=== PATIENT | male | born 1940 | race African-American/Black ===

== ENCOUNTER 2020-11-20 06:15 | Inpatient (IN) | payer MEDICARE, BC ==
[~2020-11-20] VITALS: Ht 152.4 cm; Wt 86.2 kg
--- NOTE | ~2020-11-20 | OP ---
[facility] [address] [place] [address] OPERATIVE REPORT Name: ROSALEE MCKEON JR Room: [address] IN ..#: [id number] Admission: 11/20/20 Attend Phys: Aubree Caceres Discharge: Date of : 44 Report #: [id number] THIS REPORT FOR: cc: Kirby Hall MD, William MD Haggard,Javier Zuniga MD ~ DOC #: [id number] Javier Barney MD DATE OF SURGERY: 11/20/2020 PREOPERATIVE DIAGNOSES: A 7 mm mid left ureteral stone, nonobstructing left renal stone, bladder calculi, benign prostatic hypertrophy with obstruction. POSTOPERATIVE DIAGNOSES: A 7 mm mid left ureteral stone, nonobstructing left renal stone, bladder calculi, benign prostatic hypertrophy with obstruction. PROCEDURES: Cystoscopy, left retrograde pyelogram, left ureteroscopy, left ureteral stent placement, cystolitholapaxy less than 2.5 cm in size. STAFF SURGEON: Javier Barney MD SEAMLESS HOSIERY KNITTER: None. ANESTHESIA: General. ESTIMATED BLOOD LOSS: 10 mL. COMPLICATIONS: None. SPECIMENS: Bladder stone fragments. DRAINS: A 26 cm x 6-Sudanese left ureteral stent and a 22-Sudanese 3-way Lennon catheter. INDICATIONS: The patient is a pleasant 80-year-old black male with history of kidney stones who denies significant voiding issues who presented with severe left flank pain. CT scan confirmed a 7 mm mid left ureteral stone and a nonobstructing left lower pole stone as well as several bladder calculi. He was counseled regarding treatment options, has elected for definitive cystoscopy, left retrograde pyelogram, left ureteroscopy, possible holmium laser lithotripsy, possible placement of left ureteral stent. After the risks and benefits of the procedure were explained, informed consent was obtained. OPERATIVE PROCEDURE: The patient was taken to the operating room, comfortably placed in the dorsal lithotomy position under adequate general anesthesia. He was sterilely prepped and draped [place] [address] OPERATIVE REPORT Name: ROSALEE MCKEON JR Room: [address] IN ..#: [id number] Admission: 11/20/20 Attend Phys: Aubree Caceres Discharge: Date of : 44 Report #: [id number] genitalia. He received his antibiotic therapy as prescribed with Ancef. Appropriate timeout was carried out and all were in agreement. A 22-Sudanese cystoscope was placed in mid urethra. Anterior urethra normal. Sphincter intact. Prostate showed marked trilobar prostatic hyperplasia with visual obstruction. Multiple bladder calculi were seen. See pictures for details. An 8-Sudanese cone-tipped catheter placed in the left ureteral orifice and a retrograde pyelogram was performed showing significant J-hooking of the distal left ureter, a pretty large filling defect in the proximal ureter. With dilation proximal to this corresponding stone seen on CT scan, I was able to manipulate an 0.035 Glidewire up the left ureter up to the level of the kidney. The cystoscope was removed and a 4.5 Sudanese tapered to 6.5 Sudanese Potter semi-rigid ureteroscope was advanced through the urethra up the left ureter, but really could only reach about the iliac level, which is only about two-thirds of the way to the level of the stone. The semirigid scope was then removed. Cystoscope was backloaded over the guidewire and a 26 cm x 6-Sudanese ureteral stent was put in place and had upper part of the stent in the upper pole compound, upper pole christian and a good coil in the bladder. Attention was then turned to the bladder calculi. 1000 micron holmium laser fiber was used to fragment the stones and multiple fragments irrigated out with a Cassidy syringe. Due to the median lobe, it was hard to get the stones out in the very dependent, so I had to use grasper, just to remove the fragments that would not irrigate out freely. Due to the multiple irrigations and the irritation of the lining from the indwelling stone, there was some mild hematuria that had developed, thought to be most prudent just to simply place the irrigations, so clots would not form. The cystoscope was then removed and a 22-Sudanese 3-way Lennon catheter put in place and secured with 30 mL of sterile water placed. Irrigation was clear with faint pink tinge. He tolerated the procedure extremely well. He was extubated in the operating room, transferred to [facility] with assistance and went to recovery room in stable condition. May remove this Lennon catheter in the morning. He will need stage 2 procedure for cystoscopy, left ureteroscopy, holmium laser lithotripsy of mid ureteral stone and might as well get the lower pole stone as well. He is free to follow up with his urologist, Dr. Sanchez. I will be more than happy to take over his care as well. Javier WELLS/RADHA By: 1113 1314Kent Nadia Barney MD /nt
[~2020-11-20 06:15] MED LIST: ADULT LOW DOSE81 MG PO; ASPIRIN325 PO; AVODART0.5 MG PO; CIPRO500 MG PO; CIPROFLOXACIN500 M1 PO; COLACE100 MG PO; CRESTOR10 MG PO; CRESTOR5 MG PO; FLAGYL500 MG PO; KEPPRA; LEVAQUIN 500 M500 MG PO; NOHOMEMEDICATIONS; NORCO 5-325 TA1 EACH PO; PERCOCET 5-3251 EACH PO; TAMSULOSIN HCL0.4 M1 PER TUBE; TAMSULOSIN HCL0.4 M1 PO; TAMSULOSIN HCL0.4 MG PO; ULTRAM 50MG TAB50 MG PO; VIAGRA50 MG
[2020-11-20 06:21] VITALS: BP 153/73
[2020-11-20 06:54] LABS: ABSOLUTE BASOPHILS 0.1 thou/uL (0.0-0.2); ABSOLUTE LYMPHOCYTES 1.6 thou/uL (0.8-5.3); ABSOLUTE NEUTROPHILS 8.9 thou/uL (1.6-8.1); BASOPHILS 0.6 %; EOSINOPHILS 0.3 %; HEMATOCRIT 45.3 % (42.0-52.0); HEMOGLOBIN 15.3 gm/dL (14.0-18.0); LYMPHOCYTES 13.5 %; MCHC 33.9 g/dL (28.0-37.0); MCV 88.6 fL (80.0-100.0); MONOCYTES 8.6 %; MPV 7.5 fl. (7.2-11.1); NUCLEATED RBCS 0 /100WBC; PLATELET COUNT* 265 thou/uL (150-400); RBC 5.11 mil/uL (4.50-6.00); RDW-CV 14.1 % (10.5-14.5); WBC 11.6 thou/uL (4.0-11.0)
[2020-11-20 07:04] LABS: CALCIUM 8.9 mg/dL (8.5-10.1); POTASSIUM 3.4 mmol/L (3.5-5.1)
[2020-11-20 07:08] LABS: ALBUMIN 3.8 g/dL (3.4-5.0); APTT 23.9 Seconds (25.0-31.3); INR 1.1; PROTIME 11.7 Seconds (9.20-11.50); TOTAL BILIRUBIN 1.1 mg/dL (<0.1-1.0); TOTAL PROTEIN 8.1 g/dL (6.4-8.2)
[2020-11-20 08:38] LABS: URINE BILIRUBIN NEGATIVE (Negative); URINE BLOOD 3+ (Negative); URINE CLARITY CLEAR; URINE COLOR YELLOW; URINE GLUCOSE-RANDOM NEGATIVE (Negative); URINE KETONES NEGATIVE (Negative); URINE LEUKOCYTES-REFLEX 1+ (Negative); URINE PROTEIN NEGATIVE (Negative); URINE UROBILINOGEN 0.2 E.U./dl (0.2-1.0)
[2020-11-20 08:48] LABS: SQUAMOUS 0-3 Few /LPF (0-3); URINE NITRITE-REFLEX POSITIVE (Negative); URINE WBC-REFLEX 6-15 Few /HPF (0-5)
[2020-11-20 08:49] LABS: CASTS None Seen /LPF (None Seen); CRYSTALS None Seen /LPF (None Seen); HYALINE CASTS 0-3 Few /LPF (None Seen); URINE RBC 3-10 Few /HPF (0-2)
[2020-11-20 09:33] VITALS: BP 120/92
--- NOTE | 2020-11-20 11:38 | EKG ---
[place] [address] ELECTROCARDIOGRAM REPORT Name: ROSALEE MCKEON JR Room: [facility] ADM IN [facility]#: [id number] Admission: 11/20/20 Attend Phys: Javy Valencia Discharge: Date of : 44 Date of Service: 11/20/20 0650 Report #: [id number] THIS REPORT FOR: //name// [facility] ED Test Date: 2020-11-20 Test Time: 06:50:38 Pat Name: ROSALEE MCKEON Department: Room: [facility] Gender: M [employer]ized [employer] Lieutenant: [facility] : 1940 Requested By: Yael Urena Order Number: [id number] MD: Arley Monsivais Measurements Intervals [place] Rate: 78 P: 47 NC: 155 QRS: 2 QRSD: 98 T: 23 QT: 380 QTc: 433 Interpretive Statements Sinus rhythm Compared to ECG 08/24/2013 12:21:11 T-wave abnormality no longer present Electronically Signed On 11-20-2020 11:37:57 CDT by Arley Monsivais [email or web address] <ELECTRONICALLY SIGNED> By: Arley Monsivais MD, [facility] 11/20/20 1137 0650 0650 Arley Monsivais MD, [facility] /EPI
[2020-11-20 13:30] VITALS: BP 151/65
[2020-11-20 17:22] VITALS: BP 109/67
[2020-11-21 07:55] VITALS: BP 140/69
[2020-11-21 10:00] LABS: CALCIUM 8.7 mg/dL (8.5-10.1); POTASSIUM 3.4 mmol/L (3.5-5.1)
[2020-11-21 10:53] VITALS: BP 140/69
[2020-11-21 11:23] VITALS: BP 140/69
== END 2020-11-21 11:20 | disposition home or self-care (01) | DRG 661 ==
LOC: M.ERS 06:15 → M.ORTHSURG 09:12 → M.TBA-ER 09:12 → M.ORTHSURG 13:21
PROVIDERS: Internal Medicine; Personal Emergency Response Attendant; ADMIT Internal Medicine; ATTEND Internal Medicine
PROC: 0H97XZZ Drainage of Abdomen Skin, External Approach (ICD-10-PCS; principal; 2020-11-20)
PROC: BT1F1ZZ Fluoroscopy of Left Kidney, Ureter and Bladder using Low Osmolar Contrast (ICD-10-PCS; principal; 2020-11-20)
PROC: 0T778DZ Dilation of Left Ureter with Intraluminal Device, Via Natural or Artificial Opening Endoscopic (ICD-10-PCS; principal; 2020-11-20)
DX: N13.6 Pyonephrosis (principal); N40.1 Benign prostatic hyperplasia with lower urinary tract symptoms; E87.6 Hypokalemia; N21.0 Calculus in bladder; Z20.822 Contact with and (suspected) exposure to COVID-19; Z86.73 Personal history of transient ischemic attack (TIA), and cerebral infarction without residual deficits; Z87.19 Personal history of other diseases of the digestive system; Z88.8 Allergy status to other drugs, medicaments and biological substances; Z79.82 Long term (current) use of aspirin; Z79.899 Other long term (current) drug therapy

== ENCOUNTER → 2020-11-28 | Day surgery (SDC) | payer MEDICARE, BC ==
--- NOTE | ~2020-11-28 | OP ---
[address] [address] OPERATIVE REPORT Name: ROSALEE MCKEON Room: [facility]#: [id number] Admission: 11/28/20 Attend Phys: Javier Barney MD Discharge: Date of : 44 Report #: [id number] THIS REPORT FOR: cc: Kirby Hall MD,Kirby Barney,Javier Zuniga MD ~ DOC #: [id number] Javier Barney MD DATE OF SURGERY: 11/28/2020 PREOPERATIVE DIAGNOSIS: A 7 mm left proximal ureteral stone. POSTOPERATIVE DIAGNOSIS: A 7 mm left lower pole kidney stone. PROCEDURES: Cystoscopy, left stent removal, left ureteroscopy with holmium laser lithotripsy, ureteroscopic stone extraction, placement of left ureteral stent with attached string. STAFF SURGEON: Javier Barney MD. PUPPET ENGINEER: None. ANESTHESIA: General. ESTIMATED BLOOD LOSS: Minimal. COMPLICATIONS: None. SPECIMENS: Left renal stone fragment. DRAINS: A 28 cm x 4.8-Kenyan left ureteral stent with attached string. INDICATIONS: The patient is a 80-year-old white male who presented with a 7 mm proximal left ureteral stone and underwent cystoscopy, left retrograde pyelogram, left ureteroscopy, left ureteral stent placement who comes in today for stage 2 procedure for cystoscopy, left stent removal, left ureteroscopy, possible holmium laser lithotripsy, possible placement of left ureteral stent. After the risks and benefits of the procedure explained, informed consent was obtained. DESCRIPTION OF PROCEDURE: The patient was taken to the operating room, comfortably placed in the dorsal lithotomy position under adequate general anesthesia. He was sterilely prepped and draped in sterile fashion exposing only genitalia. He received his antibiotic therapy as prescribed. An appropriate time-out was carried out and all were in agreement. A 22-Kenyan cystoscope was placed in urethra. Anterior urethra normal, [place] [address] OPERATIVE REPORT Name: ROSALEE MCKEON JR Room: [facility]#: [id number] Admission: 11/28/20 Attend Phys: Javier Barney MD Discharge: Date of : 44 Report #: [id number] Prostate showed marked trilobar prostatic hyperplasia with median lobe, stent protruding from the left ureteral orifice with some ____ encrustation. Able to grasp the stent, brought out through the urethral meatus, needed to break up the calcification ____ to be able to cannulate the existing stent with a 0.035 Glidewire. It was placed up the left ureter to the level of the kidney. The old stent was subsequently removed. A 4.5-Kenyan tapered to a 6.5-Kenyan Potter semirigid ureteroscope advanced through the urethra up the left ureter, but could only get to the level of the iliac crest, could not get up any higher. The semirigid scope was removed. A 13-Kenyan access sheath with 11-Kenyan obturator that was 35 cm long was gently placed over the guidewire just above the iliac vessels. Obturator and guidewire removed. An 8-Kenyan flexible scope placed through the access sheath. Remaining part of the ureter was normal. Upper pole calyx looked good. Middle pole calyx looked good. I did identify the stone in the lower pole in an area where I could see the stone, but really could not get a laser fiber on it. A 1.9-Kenyan nitinol basket was used to remove the stone from the lower pole and bring it into the upper pole. 272 micron holmium laser fiber set at 6.4 monge began to fragment the stones into multiple small fragments. ____ fragment cannot be migrated in the upper pole. I was able to use a 1.9 Kenyan nitinol basket to engage the main fragment and brought it down to the access sheath. It was too large to bring through the access sheath, so the entire access sheath was then removed and a stone was sent off for analysis. Repeat cystoscopy was carried out. Guidewire was placed back up the left ureter. A 28 cm x 4.8-Kenyan ureteral stent was advanced coaxial with the guidewire, positioned with stent in the upper pole of the compound ____ good coil in the bladder. The bladder was drained. The cystoscope was then removed. String attached and secured to the outside of the phallus. He has actually not been transferred to [facility] with assistance and went to recovery in stable condition. Javier WELLS/JOSE JUAN/SOT By: 1201 1257Kent Nadia Barney MD /christian
== END | disposition home or self-care (01) ==
LOC: M.SUR 06:41
PROVIDERS: ATTEND Urology
DX: N13.2 Hydronephrosis with renal and ureteral calculous obstruction (principal); R10.9 Unspecified abdominal pain; N40.0 Benign prostatic hyperplasia without lower urinary tract symptoms; Z87.442 Personal history of urinary calculi; Z86.73 Personal history of transient ischemic attack (TIA), and cerebral infarction without residual deficits; Z98.890 Other specified postprocedural states; Z79.899 Other long term (current) drug therapy

== ENCOUNTER 2020-12-07 11:41 | Observation (INO) | payer MEDICARE, BC ==
[~2020-12-07] VITALS: Ht 175.3 cm; Wt 92.5 kg
--- NOTE | ~2020-12-07 | OP ---
[facility] [address] [place] [address] OPERATIVE REPORT Name: ROSALEE MCKEON JR Room: [address] Poli Sarkar#: [id number] Admission: 12/07/20 Attend Phys: Aubree Reed Discharge: 12/08/20 Date of : 44 Report #: [id number] THIS REPORT FOR: cc: Kirby Hall MD, William MD Park,Oralndo Howard MD ~ DOC #: [id number] Orlando Starkey MD DATE OF SURGERY: 12/08/2020 PREOPERATIVE DIAGNOSIS: Left kidney stones. POSTOPERATIVE DIAGNOSIS: Left kidney stones. PROCEDURE: Cystoscopy, left stent placement. SURGEON: Orlando Starkey MD ANESTHESIA: General. ESTIMATED BLOOD LOSS: None. COMPLICATIONS: None. FINDINGS: 1. Left hydronephrosis due to ureteral stones. 2. Drain is 6 x 24 stent. INDICATIONS FOR PROCEDURE: This is a 80-year-old gentleman with a history of kidney stones. He has had a couple of procedures by Dr. Barney. He had a stent in place with a string that the patient removed on his own. Subsequently, he developed pain again, came to the Emergency Department. CT showed two mid ureteral stones causing hydronephrosis. After all options were discussed. It was felt best to place a stent to relieve his obstruction. Then, treat his stone in a staged fashion. Risks and complications explained. He wanted to proceed. DESCRIPTION OF PROCEDURE: Informed consent was obtained. The patient was taken to the operative suite where he was placed in the dorsal lithotomy position under general anesthetic, the area of the genitalia was prepped and draped in standard fashion. A 21-Occitan rigid scope was placed per urethra into the bladder. Normal anterior urethra. Prostate showed a large prostate with a median lobe and the prostate is seen friable. Bladder had some mild hematuria and posterior bladder wall showed erythema. The left UO was actually challenging to find due to his large prostate. Once we saw the UO, we were able to do fluoroscopy and noted that he had a persistent pyelogram [place] [address] OPERATIVE REPORT Name: ROSALEE MCKEON JR Room: [address] BreanaR.#: [id number] Admission: 12/07/20 Attend Phys: Aubree Reed Discharge: 12/08/20 Date of : 44 Report #: [id number] before. There is still hydronephrosis present. A wire was used to cannulate the left orifice. With the wire in the kidney, over the wire ureteral catheter was advanced and measured out the ureter. A 6 x 24 stent was then placed. It showed a good curl up in the kidney down in the bladder. Bladder was drained. Scope was withdrawn. The patient tolerated the procedure well and sent to recovery room in stable condition. The patient will follow up with Dr. Barney for staged stone removal of his ureteral stones x 2. Orlando Starkey MD [facility] By: 0745Orlando Starkey MD /nt
[2020-12-07 11:50] VITALS: BP 157/61
[2020-12-07 12:13] LABS: ABSOLUTE BASOPHILS 0.1 thou/uL (0.0-0.2); ABSOLUTE EOSINOPHILS 0.1 thou/uL (0.0-0.7); ABSOLUTE LYMPHOCYTES 1.4 thou/uL (0.8-5.3); ABSOLUTE MONOCYTES 1.1 thou/uL (0.0-1.2); ABSOLUTE NEUTROPHILS 8.7 thou/uL (1.6-8.1); BASOPHILS 0.7 %; EOSINOPHILS 0.5 %; HEMOGLOBIN 14.8 gm/dL (14.0-18.0); LYMPHOCYTES 12.2 %; MCH 29.9 pg (26.0-34.0); MCHC 33.7 g/dL (28.0-37.0); MCV 88.6 fL (80.0-100.0); MONOCYTES 9.8 %; MPV 7.4 fl. (7.2-11.1); NUCLEATED RBCS 0 /100WBC; PLATELET COUNT* 251 thou/uL (150-400); POLYS 76.8 %; RBC 4.97 mil/uL (4.50-6.00); RDW-CV 13.9 % (10.5-14.5); WBC 11.4 thou/uL (4.0-11.0)
[2020-12-07 12:22] LABS: CREATININE 1.2 mg/dL (0.6-1.3)
[2020-12-07 12:26] LABS: ALBUMIN 3.8 g/dL (3.4-5.0); TOTAL BILIRUBIN 0.8 mg/dL (<0.1-1.0); TOTAL PROTEIN 7.7 g/dL (6.4-8.2)
[2020-12-07 14:36] LABS: URINE BILIRUBIN NEGATIVE (Negative); URINE BLOOD 2+ (Negative); URINE CLARITY CLEAR; URINE COLOR YELLOW; URINE GLUCOSE-RANDOM NEGATIVE (Negative); URINE KETONES NEGATIVE (Negative); URINE LEUKOCYTES-REFLEX TRACE (Negative); URINE PROTEIN NEGATIVE (Negative); URINE UROBILINOGEN 0.2 E.U./dl (0.2-1.0)
[2020-12-07 14:37] LABS: URINE NITRITE-REFLEX POSITIVE (Negative)
[2020-12-07 14:42] LABS: BACTERIA-REFLEX 1-9 Few /HPF (None Seen); CASTS None Seen /LPF (None Seen); CRYSTALS None Seen /LPF (None Seen); MUCUS 4-6 Moderate strn/LPF (None Seen); SQUAMOUS 4-10 Moderate /LPF (0-3); URINE RBC 0-2 Rare /HPF (0-2); URINE WBC-REFLEX 0-5 Rare /HPF (0-5)
[2020-12-07 15:51] VITALS: BP 136/56
[2020-12-07 16:48] VITALS: BP 124/70
[2020-12-07 20:10] VITALS: BP 124/63
[2020-12-08 06:00] VITALS: BP 97/57
[2020-12-08 06:15] VITALS: BP 124/63
[2020-12-08 09:05] VITALS: BP 119/60
--- NOTE | 2020-12-08 10:41 | EKG ---
[place] [address] ELECTROCARDIOGRAM REPORT Name: ROSALEE MCKEON JR Room: [address]R.#: [id number] Admission: 12/07/20 Attend Phys: Kirby Gomez Discharge: Date of : 44 Date of Service: 12/07/20 1232 Report #: [id number] THIS REPORT FOR: //name// [facility] ED Test Date: 2020-12-07 Test Time: 12:32:53 Pat Name: ROSALEE MCKEON Department: Room: [facility] Gender: M Alliance Consultant: ZENAIDA : 1940 Requested By: Erendria Jose Order Number: [id number] MD: Arley Monsivais Measurements Intervals [place] Rate: 69 P: 66 AK: 147 QRS: 10 QRSD: 91 T: 30 QT: 415 QTc: 445 Interpretive Statements Sinus rhythm Compared to ECG 11/20/2020 06:50:38 No significant changes Electronically Signed On 12-08-2020 10:41:28 CDT by Arley Monsivais [email or web address] <ELECTRONICALLY SIGNED> By: Arley Monsivais MD, [facility] 12/08/20 1041 1232 1232 Arley Monsivais MD, [facility] /EPI
[2020-12-08] MEDS ORDERED: OXYCODONE HCL 55 MG PO (11:07)
[2020-12-08] MEDS ORDERED: CEFDINIR300 MG PO (11:07)
[2020-12-08 11:28] VITALS: BP 119/60
[2020-12-08 13:01] VITALS: BP 119/60
== END 2020-12-08 12:05 | disposition home or self-care (01) ==
LOC: M.ERS 11:41 → M.TBA-ER 14:19 → M.ORTHSURG 15:57
PROVIDERS: Nurse Practitioner Family; ADMIT Internal Medicine; ATTEND Internal Medicine
DX: N13.2 Hydronephrosis with renal and ureteral calculous obstruction (principal); N17.9 Acute kidney failure, unspecified; Z20.822 Contact with and (suspected) exposure to COVID-19; N39.0 Urinary tract infection, site not specified; R33.9 Retention of urine, unspecified; Z86.73 Personal history of transient ischemic attack (TIA), and cerebral infarction without residual deficits; Z79.82 Long term (current) use of aspirin; Z79.899 Other long term (current) drug therapy; Z98.890 Other specified postprocedural states

== ENCOUNTER → 2020-12-26 | Day surgery (SDC) | payer MEDICARE, BC ==
[~2020-12-26] MED LIST changes: +BACTRIM DS TAB1 EAC1 PO; +CEFDINIR300 MG PO; +OXYCODONE HCL 55 MG PO; +PHENAZOPYRIDIN200 M2 PO; +TRAMADOL 50 MG50 MG PO
--- NOTE | ~2020-12-26 | OP ---
[address] [address] OPERATIVE REPORT Name: ROSALEE MCKEON JR Room: [facility]#: [id number] Admission: 12/26/20 Attend Phys: Javier Barney MD Discharge: Date of : 44 Report #: [id number] THIS REPORT FOR: cc: Kirby Hall MD, William MD Haggard,Javier Zuniga MD ~ DOC #: [id number] Javier Barney MD DATE OF SURGERY: 12/26/2020 PREOPERATIVE DIAGNOSIS: Left ureteral calculi. POSTOPERATIVE DIAGNOSIS: Left ureteral calculi. PROCEDURE: Cystoscopy, left stent removal, left ureteroscopy with ureteroscopic stone extraction, placement of left ureteral stent with attached string. STAFF SURGEON: Javier Barney MD ANESTHESIA: General. ESTIMATED BLOOD LOSS: Trace. COMPLICATIONS: None. SPECIMENS: Left renal stone. DRAINS: 26 cm x 4.8-Irish left ureteral stent with attached string. INDICATIONS FOR PROCEDURE: The patient is a pleasant 80-year-old black male with history of an obstructing left ureteral stone and a nonobstructing left lower pole stone. He underwent ureteroscopy, holmium laser lithotripsy, ureteroscopic stone extraction of the ureteral stone and holmium laser of the lower pole stone. He subsequently removed the left ureteral stent and he developed ureteral obstruction from the lower pole stones which were fragmented. He subsequently underwent left ureteral stent placement on 12/08/[address] Orlando Starkey. He was actually seen in our office yesterday and still has the stone. He now presents for cystoscopy, left stent removal, left ureteroscopy, possible holmium laser lithotripsy, and possible placement of left ureteral stent. After the risks and benefits of the procedure were explained, informed consent was obtained. DESCRIPTION OF PROCEDURE: The patient was taken to the operating room comfortably placed in the dorsal lithotomy position under adequate general anesthesia. He was sterilely prepped and draped in sterile fashion exposing only the genitalia. He received antibiotic therapy as prescribed. A [address] [place] [address] OPERATIVE REPORT Name: ROSALEE MCKEON JR Room: [facility]#: [id number] Admission: 12/26/20 Attend Phys: Javier Barney MD Discharge: Date of : 44 Report #: [id number] cystoscope with 30-degree angle lens was grasped and appropriate timeout was carried out and all were in agreement. Scope was then placed into the urethra. Anterior urethra normal, sphincter intact. Prostate showed some bilobar prostatic hyperplasia with an elevated bladder neck. Stent protruding from the left ureteral orifice, was actually partially calcified. Grasping forceps used to grasp the stent and crushed off the stone into the bladder. Grasping forceps were used to grasp the stent, brought it out through the urethral meatus. I was unable to place the guidewire through the existing stent. The old stent was removed. Repeat ureteroscopy was carried out and with ease, a 5-Irish open-ended ureteral catheter was able to replace the guidewire up the left ureter. A 4.5 Irish tapered to a 6.5-Irish Potter semi-rigid ureteroscope advanced through the urethra up the left ureter. There was some debris and the lower ureter was kind of just raked out. We went up to about mid ureter, found the stone, grasped it with a 2.4 Irish flat wire basket, gently removed it intact without difficulty, but kind of reached the maximal amount with a semirigid scope just above the iliac vessels. At this point, put the 8-Irish flexible scope over the guidewire up to just above the iliac vessels. Guidewire removed. The remaining part of the ureter was looked out with a fiberoptic scope, did not see any other stones, looked in the renal pelvis and calices, no other stones identified. The flexible scope was brought down to the distal ureter. A guidewire was placed through the flexible scope. The flexible scope was removed. Cystoscope was backloaded over the guidewire. Initially, I attempted to place a 28 cm x 4.8 Irish ureteral stent, seemed too long, switched out for a 26 cm x 4.8 Irish ureteral stent positioned with a coil in a compound upper pole christian and a good coil in the bladder. Bladder was drained, cystoscope was removed. String was left attached and secured to the outside of the phallus with Tegaderm. Lidocaine jelly was placed into his urethra. He tolerated this extremely well. He was extubated in the operating room, transferred to [facility] with assistance and went to recovery in stable condition. We will have him remove the stent next Wednesday. PLAN: Follow up in our office in 6 weeks with a renal ultrasound. Javier WELLS/PATRIC/MARIANO By: 1529 1730Kent Nadia Barney MD /christian
[2020-12-26 12:56] LABS: HEMATOCRIT 42.5 % (42.0-52.0); HEMOGLOBIN 14.7 gm/dL (14.0-18.0); MCH 30.2 pg (26.0-34.0); MCHC 34.5 g/dL (28.0-37.0); MCV 87.6 fL (80.0-100.0); MPV 7.3 fl. (7.2-11.1); RBC 4.85 mil/uL (4.50-6.00); RDW-CV 14.1 % (10.5-14.5); WBC 6.1 thou/uL (4.0-11.0)
[2020-12-26 13:09] LABS: CALCIUM 9.4 mg/dL (8.5-10.1); POTASSIUM 3.9 mmol/L (3.5-5.1)
== END | disposition home or self-care (01) ==
LOC: M.SUR 12:28
PROVIDERS: ATTEND Urology
DX: N13.2 Hydronephrosis with renal and ureteral calculous obstruction (principal); Z98.890 Other specified postprocedural states; Z79.899 Other long term (current) drug therapy; Z88.8 Allergy status to other drugs, medicaments and biological substances; Z80.0 Family history of malignant neoplasm of digestive organs; Z82.49 Family history of ischemic heart disease and other diseases of the circulatory system

== ENCOUNTER → 2021-02-13 | Outpatient (CLI) | payer MEDICARE, BC | LOC: M.ULTRA 09:25 | PROVIDERS: ATTEND Urology | DX: N20.1 Calculus of ureter (principal); R10.9 Unspecified abdominal pain ==

== ENCOUNTER 2021-06-26 12:44 | Emergency (ER) | payer MEDICARE, BC ==
[~2021-06-26] VITALS: Ht 172.7 cm; Wt 81.7 kg
[2021-06-26 13:51] LABS: URINE BILIRUBIN NEGATIVE (Negative); URINE BLOOD 3+ (Negative); URINE CLARITY CLEAR; URINE COLOR YELLOW; URINE GLUCOSE-RANDOM NEGATIVE (Negative); URINE KETONES NEGATIVE (Negative); URINE LEUKOCYTES-REFLEX 1+ (Negative); URINE NITRITE-REFLEX NEGATIVE (Negative); URINE PROTEIN 1+ (Negative); URINE UROBILINOGEN 0.2 E.U./dl (0.2-1.0)
[2021-06-26 13:59] LABS: BACTERIA-REFLEX 1-9 Few /HPF (None Seen); CASTS None Seen /LPF (None Seen); CRYSTALS None Seen /LPF (None Seen); SQUAMOUS 0-3 Few /LPF (0-3); URINE WBC-REFLEX 6-15 Few /HPF (0-5)
[2021-06-26 14:24] LABS: CALCIUM 9.2 mg/dL (8.5-10.1); CREATININE 1.1 mg/dL (0.6-1.3); POTASSIUM 4.2 mmol/L (3.5-5.1)
[2021-06-26 14:26] LABS: HEMATOCRIT 44.3 % (42.0-52.0); HEMOGLOBIN 14.8 gm/dL (14.0-18.0); MCH 29.3 pg (26.0-34.0); MCHC 33.3 g/dL (28.0-37.0); MPV 7.7 fl. (7.2-11.1); RBC 5.04 mil/uL (4.50-6.00); RDW-CV 14.1 % (10.5-14.5)
[2021-06-26] MEDS ORDERED: CEPHALEXIN500 MG PO (14:35)
[2021-06-26] MEDS ORDERED: APAP W/CODEINE1 TA2 PO (14:36)
[2021-06-26 14:48] VITALS: BP 142/70
== END 2021-06-26 14:48 | disposition home or self-care (01) ==
LOC: M.ERS 12:44
PROVIDERS: Physician Assistant
DX: M25.552 Pain in left hip (principal); N39.0 Urinary tract infection, site not specified; Z86.73 Personal history of transient ischemic attack (TIA), and cerebral infarction without residual deficits; Z87.442 Personal history of urinary calculi; Z98.890 Other specified postprocedural states; Z79.82 Long term (current) use of aspirin; Z79.899 Other long term (current) drug therapy; Z88.8 Allergy status to other drugs, medicaments and biological substances